=== PATIENT | male | born 1975 | race Caucasian/White ===

== ENCOUNTER 2017-01-19 20:29 | Emergency (ER) | payer BC, OTHER ==
--- NOTE | 2017-01-19 20:54 | EDPHY ---
H & P Time Seen by Provider: 01/19/17 20:51 HPI/ROS: Chief complaint. Fever and chills HPI. 41 year old male with fever and chills for 2 days. Also diarrhea. History of gastritis and GERD. The patient has arrived from [place] 5 days ago. He has been drinking alcohol heavily for the past 4-5 days. He has had some cough and congestion. No vomiting. Positive diarrhea without blood. Diffuse crampy abdominal pain. No recent antibiotics. No known exposures to Infectious Disease. Similar symptoms about 1 year ago after binge partying. ROS Constitutional. Fever and chills Eyes. no problems with vision ENT. no sore throat, no nasal drainage Cardiovascular. no chest pain Respiratory. Cough and congestion but no shortness of breath Abdominal. Abdominal pain . no problems urinating MS. no calf pain/swelling, no neck/back pain, no joint pain Skin. no rash Lymph. no swollen glands Neuro. Headache Past Medical/Surgical History: Herpes, GERD, tonsillectomy, TBI Social History: Single, daily smoker, no alcohol Smoking Status: Current some day smoker Physical Exam: General Appearance: Alert well-developed male moderate distress vital signs significant for temp 38.5degrees, heart rate 117, blood pressure 110/86 Eyes: Pupils equal and round no pallor or injection. ENT, pharynx slightly injected without exudate. Mucous membranes are moist Respiratory: There are no retractions, lungs are clear to auscultation. Cardiovascular: Regular rate and rhythm. Gastrointestinal: Abdomen is soft diffuse tenderness. No masses. Normal bowel sounds Neurological: Awake and alert, sensory and motor exams grossly normal. Skin: Warm and dry, no rashes. Musculoskeletal: Neck is supple nontender. Extremities symmetrical, full range of motion. Psychiatric: Patient is oriented X 3, there is no agitation. Constitutional: Initial Vital Signs Temperature (C) 38.5 C H 01/19/17 20:32 Heart Rate 117 H 01/19/17 20:32 Respiratory Rate 18 01/19/17 20:32 Blood Pressure 110/86 H 01/19/17 20:32 O2 Sat (%) 96 01/19/17 20:32 O2 Delivery Mode Room Air Allergies/Adverse Reactions: tetracycline Allergy (Verified 01/19/17 20:32) Home Medications: Medication Instructions Recorded Propranolol HCl 01/19/17 Ranitidine HCl 01/19/17 Valtrex 01/19/17 Medical Decision Making - Diagnostics Imaging Results: Imaging Impressions Chest X-Ray 01/19/17 20:56 Impression: Normal chest. Abdomen CT 01/19/17 21:48 Impression: 1. Features of acute colitis involving the ascending and transverse colon, with adjacent inflammatory changes. No CT evidence of acute appendicitis. Results called to Dr. Joey Manley at 11:[address] abdomen with IV contrast shows thickened wall in the cecum and ascending and somewhat transverse colon. Consistent with colitis. Appendix is normal Two-view chest x-ray interpreted by me is normal Procedures: Septic workup. IV normal saline with target of 2 L initially. Tylenol for fever ED Course/Re-evaluation: Re-evaluation 11:10 p.m.. Patient is feeling much better. He and I discussed imaging and lab results. We discussed that there are still labs pending on stool and respiratory pathogens. he also realizes that the results of these may affect his treatment. He is supposed catch a plane at a.m. tomorrow with he and would like to leave. I told him that we would provide our ER telephone number and he could call us back for lab results. I have encouraged him to follow up with his regular physician in [place] upon return home. He expresses understanding and agreement with this plan Differential Diagnosis: I considered pneumonia, sepsis, gastritis, Clostridium difficile, influenza, dehydration, electrolyte abnormalities - Data Points Laboratory Results: Laboratory Results 01/19/17 20:40 01/19/17 20:40 01/19/17 01/19/17 01/19/17 21:40 21:23 20:40 WBC RBC Hgb Hct MCV MCH MCHC RDW Plt Count MPV Neut % (Auto) Lymph % (Auto) [place] % (Auto) Eos % (Auto) Baso % (Auto) Nucleat RBC Rel Count Absolute Neuts (auto) Absolute Lymphs (auto) Absolute Monos (auto) Absolute Eos (auto) Absolute Basos (auto) Absolute Nucleated RBC Immature Gran % Immature Gran # PT INR APTT VBG Lactic Acid 0.9 mmol/L mmol/L (0.7-2.1) Sodium 133 mEq/L L mEq/L (134-144) Potassium 3.7 mEq/L mEq/L (3.5-5.2) Chloride 98 mEq/L mEq/L (97-110) Carbon Dioxide 24 mEq/l mEq/l (22-31) Anion Gap 11 mEq/L mEq/L (8-16) BUN 14 mg/dL mg/dL (7-23) Creatinine 1.1 mg/dL mg/dL (0.7-1.3) Estimated GFR > 60 Glucose 122 mg/dL H mg/dL (70-100) Calcium 8.9 mg/dL mg/dL (8.5-10.4) Total Bilirubin 1.0 mg/dL mg/dL (0.1-1.4) Urine Color YELLOW Urine Appearance CLEAR Urine pH 6.0 (5.0-7.5) Ur Specific [place] 1.020 (1.002-1.030) Urine Protein 1+ H (NEGATIVE) Urine Ketones TRACE H (NEGATIVE) Urine Blood 1+ H (NEGATIVE) Urine Nitrate NEGATIVE (NEGATIVE) Urine Bilirubin NEGATIVE (NEGATIVE) Urine Urobilinogen NEGATIVE EU EU (0.2-1.0) Ur Leukocyte Esterase NEGATIVE (NEGATIVE) Urine RBC 1-3 /hpf /hpf (0-3) Urine WBC 1-3 /hpf /hpf (0-3) Ur Epithelial Cells NONE SEEN /lpf /lpf (NONE-1+) Ur Renal Epithelial Cell OCCASIONAL /hpf H /hpf (NONE SEEN) Urine Mucus TRACE /lpf /lpf (NONE-1+) Urine Glucose NEGATIVE (NEGATIVE) 01/19/17 01/19/17 20:40 20:40 WBC 11.50 10^3/uL H 10^3/uL (3.80-9.50) RBC 4.88 10^6/uL 10^6/uL (4.40-6.38) Hgb 15.5 g/dL g/dL (13.7-17.5) Hct 42.5 % % (40.0-51.0) MCV 87.1 fL fL (81.5-99.8) MCH 31.8 pg pg (27.9-34.1) MCHC 36.5 g/dL g/dL (32.4-36.7) RDW 12.8 % % (11.5-15.2) Plt Count 141 10^3/uL L 10^3/uL (150-400) MPV 9.5 fL fL (8.7-11.7) Neut % (Auto) 84.1 % H % (39.3-74.2) Lymph % (Auto) 4.8 % L % (15.0-45.0) [place] % (Auto) 10.2 % % (4.5-13.0) Eos % (Auto) 0.1 % L % (0.6-7.6) Baso % (Auto) 0.3 % % (0.3-1.7) Nucleat RBC Rel Count 0.0 % % (0.0-0.2) Absolute Neuts (auto) 9.68 10^3/uL H 10^3/uL (1.70-6.50) Absolute Lymphs (auto) 0.55 10^3/uL L 10^3/uL (1.00-3.00) Absolute Monos (auto) 1.17 10^3/uL H 10^3/uL (0.30-0.80) Absolute Eos (auto) 0.01 10^3/uL L 10^3/uL (0.03-0.40) Absolute Basos (auto) 0.03 10^3/uL 10^3/uL (0.02-0.10) Absolute Nucleated RBC 0.00 10^3/uL 10^3/uL (0-0.01) Immature Gran % 0.5 % % (0.0-1.1) Immature Gran # 0.06 10^3/uL 10^3/uL (0.00-0.10) PT 15.1 SEC H SEC (12.0-15.0) INR 1.19 H (0.83-1.16) APTT 30.9 SEC SEC (23.0-38.0) VBG Lactic Acid Sodium Potassium Chloride Carbon Dioxide Anion Gap BUN Creatinine Estimated GFR Glucose Calcium Total Bilirubin Urine Color Urine Appearance Urine pH Ur Specific [place] Urine Protein Urine Ketones Urine Blood Urine Nitrate Urine Bilirubin Urine Urobilinogen Ur Leukocyte Esterase Urine RBC Urine WBC Ur Epithelial Cells Ur Renal Epithelial Cell Urine Mucus Urine Glucose Medications Given: Discontinued Medications Acetaminophen (Tylenol) 1,000 mg PO EDNOW ONE Stop: 01/19/17 21:48 Last Admin: 01/19/17 21:52 Dose: 1,000 mg Sodium Chloride (Ns) 1,000 mls @ 0 mls/hr IV EDNOW ONE; Wide Open PRN Reason: Protocol Stop: 01/19/17 21:49 Last Admin: 01/19/17 22:51 Dose: 1,000 mls Sodium Chloride (Ns) 1,000 mls @ 0 mls/hr IV EDNOW ONE; Wide Open PRN Reason: Protocol Stop: 01/19/17 21:49 Last Admin: 01/19/17 21:52 Dose: 1,000 mls Departure - Departure Disposition: Home, Routine, Self-Care Clinical Impression: Colitis Condition: Good Instructions: Colitis (ED) Additional Instructions: Frequent, small sips fluids well nauseated. Gradual diet advancement. Drink plenty of fluids and stay hydrated. May continue your meds for GERD and your stomach. Tylenol and ibuprofen for fever. Hydrocodone in addition as needed for pain. Return tonight for worsening symptoms. Follow up with your regular physician in [place] in the next 1-2 days without fail. Call back for results of your stool and respiratory pathogens tomorrow. Referrals: NONE *PRIMARY CARE P,. [Primary Care Provider] - As per Instructions
[2017-01-19 21:05] LABS: % IMMATURE GRANULYOCYTES 0.5 % (0.0-1.1); ABSOLUTE IMMATURE GRANULOCYTES 0.06 10^3/uL (0.00-0.10); ADD DIFF? NO; ADD MORPH? NO; ADD SCAN? NO; ATYPICAL LYMPHOCYTE FLAG 0 (0-99); FRAGMENT RBC FLAG 0 (0-99); HEMATOCRIT 42.5 % (40.0-51.0); HEMOGLOBIN 15.5 g/dL (13.7-17.5); LEFT SHIFT FLG 0 (0-99); LIPEMIA HEMOLYSIS FLAG 90 (0-99); MEAN CELL HEMOGLOBIN 31.8 pg (27.9-34.1); MEAN CELL HEMOGLOBIN CONCENTR. 36.5 g/dL (32.4-36.7); MEAN CELL VOLUME 87.1 fL (81.5-99.8); MEAN PLATELET VOLUME 9.5 fL (8.7-11.7); PLATELET CLUMPS FLAG 10 (0-99); PLATELET COUNT 141 10^3/uL (150-400); RED BLOOD CELL COUNT 4.88 10^6/uL (4.40-6.38); RED CELL DISTRIBUTION WIDTH 12.8 % (11.5-15.2)
[2017-01-19 21:14] LABS: APTT 30.9 SEC (23.0-38.0); INR 1.19 (0.83-1.16); PROTIME(PATIENT) 15.1 SEC (12.0-15.0)
[2017-01-19 21:19] LABS: ANION GAP 11 mEq/L (8-16); CALCIUM 8.9 mg/dL (8.5-10.4); CARBON DIOXIDE 24 mEq/l (22-31); CHLORIDE 98 mEq/L (97-110); CREATININE 1.1 mg/dL (0.7-1.3); GLOMERULAR FILTRATION RATE > 60; GLUCOSE 122 mg/dL (70-100); POTASSIUM 3.7 mEq/L (3.5-5.2); SODIUM 133 mEq/L (134-144)
[2017-01-19] MEDS ORDERED: ACETAMINOPHEN 500 MG TAB PO ONE (21:47)
[2017-01-19] MEDS ORDERED: NS 1,000 ML IV ONE ×2 (21:48)
[2017-01-19] MEDS ORDERED: ACETAMINOPHEN 500 MG TAB ONE (21:50)
[2017-01-19 22:04] LABS: COLOR YELLOW; LEUKOCYTE ESTERASE,URINE NEGATIVE (NEGATIVE); NITRITE,URINE NEGATIVE (NEGATIVE)
[2017-01-19] MEDS ORDERED: IOPAMIDOL (ISOVUE-300) 100 ML BTL ONE (22:09)
[2017-01-19 22:13] LABS: MUCUS TRACE /lpf (NONE-1+)
[2017-01-19 22:14] LABS: RENAL EPITHELIAL CELLS OCCASIONAL /hpf (NONE SEEN)
[2017-01-19 22:54] VITALS: RESP 18; O2SAT 96
[2017-01-19] MEDS ORDERED: HYDROCOD/APAP 5/325 PREPACK#6 BTL TAKEHOME ONE (23:15)
[2017-01-19 23:38] VITALS: BP 130/81; PULSE 93; TEMP 99.5
== END 2017-01-19 23:37 | disposition home or self-care (01) ==
PROC: 3E0337Z Introduction of Electrolytic and Water Balance Substance into Peripheral Vein, Percutaneous Approach (ICD-10-PCS; principal; 2017-01-19)
DX: K52.9 Noninfective gastroenteritis and colitis, unspecified (principal); F17.200 Nicotine dependence, unspecified, uncomplicated; E86.9 Volume depletion, unspecified
CPT/HCPCS: Q9967